=== PATIENT | male | born 1960 | race Hispanic/Latino ===

== ENCOUNTER 2018-05-16 23:22 | Emergency (ER) | payer MEDICARE ==
--- NOTE | 2018-05-16 23:37 | C.PDOC ---
History Of Present Illness 58 year old male brought in cardiac arrest by acls. Patient has Hx of depression, he was down for approximately one hour before arrival to the ER. Patient has Hx of oxycodon use at home. Chief Complaint (Nursing): Cardiac Arrest History Per: EMS Circumstances: Brought To ED By EMS Down-Time Before ACLS: Unknown Treatment Initiated Prior To MD Arrival: Yes: Defibrillation Past Medical History Reviewed: Historical Data, Nursing Documentation, Vital Signs - Medical History PMH: HIV Family History: States: Unknown Family Hx - Social History Hx Alcohol Use: (pt unresponsive) Hx Substance Use: (pt unresponsive) - Immunization History Hx Tetanus Toxoid Vaccination: No Hx Influenza Vaccination: No Hx Pneumococcal Vaccination: No Review Of Systems Review Of Systems: ROS cannot be obtained secondary to pt's inabilty to answer questions. Physical Exam - Physical Exam Appears: Other ( no vital signs) Skin: Cyanotic Head: Atraumatic, Normacephalic Eye(s): bilateral: Other (Fixed and dilated pupils) Chest: Symmetrical, Other (no sign of injuy) Cardiovascular: Other (Absent heart sounds) Respiratory: Other (Absent breath sounds) ED Course And Treatment Interpretation Of ECG: cardiac sonographer- asystole Progress Note: Patient at 2325. Medical Decision Making Medical Decision Making: Patient is asystolic, pronounced at 11:25PM Disposition Discussed With Dr.: Parrish Chaney - Disposition Disposition: WITH WITHOUT AUTOPSY Disposition Time: 23:25 Condition: Forms: [facility] ([place]) - Clinical Impression Clinical Impression: Cardiac arrest - Scribe Statement The provider has reviewed the documentation as recorded by the Scribe Parrish Phan All medical record entries made by the Scribe were at my direction and personally dictated by me. I have reviewed the chart and agree that the record accurately reflects my personal performance of the history, physical exam, medical decision making, and the department course for this patient. I have also personally directed, reviewed, and agree with the discharge instructions and disposition.
[2018-05-17 02:45] VITALS: PULSE 0; RESP 0
== END 2018-05-17 02:44 ==
LOC: C.ER 23:22
DX: I46.9 Cardiac arrest, cause unspecified (principal)